=== PATIENT | female | born 1940 | race Caucasian/White ===

== ENCOUNTER 2018-11-25 16:25 | Inpatient (IN) ==
--- NOTE | 2018-11-25 18:33 | PROVIDER DOCUMENTATION ---
HPI-Cardiac General - General Chief Complaint: Weakness Stated Complaint: HR LOW Time Seen by Provider: 11/25/18 18:20 Source: patient Allergies/Adverse Reactions: Patient Allergies Allergy/AdvReac Type Severity Reaction Status Date / Time Penicillins AdvReac ANAPHYLAXIS Verified 11/25/18 20:10 Home Medications: Home Medication List Medication Instructions Recorded Confirmed Last Taken Type BENAZEpril/HCTZ [Lotensin Hct 1 tab PO DAILY 01/28/18 11/25/18 11/24/18 History 20/12.5] Fesoterodine Fumarate [Toviaz] 8 mg PO DAILY 01/28/18 11/25/18 11/24/18 History Levothyroxine Sodium 75 mcg PO DAILY@0600 01/28/18 11/25/18 11/24/18 History Rosuvastatin Calcium 10 mg PO DAILY 01/28/18 11/25/18 11/24/18 History Venlafaxine HCl [Venlafaxine HCl 75 mg PO BID 01/28/18 11/25/18 11/25/18 History ER] Cetirizine HCl [Zyrtec] 1 cap PO DAILY 11/25/18 11/25/18 11/24/18 History Cholecalciferol (Vitamin D3) 1 cap PO DAILY 11/25/18 11/25/18 11/24/18 History [Vitamin D3] Cyanocobalamin (Vitamin B-12) 1 dose INJ DIRECTED 11/25/18 11/25/18 Unknown History [Cyanocobalamin Injection] Lacosamide [Vimpat] 1 tab PO BID 11/25/18 11/25/18 11/25/18 History - History of Present Illness-Cardiac Nature of Presenting Problem: 78 YOF PRESENTS WITH BRADYCARDIA FROM PUBLIC RELATIONS COORDINATOR OFFICE, SHE REPORTS SHE HAS BEEN FEELING WEAK FOR A FEW DAYS BUT OTHERWISE HAS NO COMPLAINTS. SHE REPORTS HER L FOOT HAS BEEN TURNING BLACK EACH MORNING AND HER FEET HAVE BEEN SWELLING ON OCCASION Location: denies: substernal, central, epigastric, shoulder, back, abdomen, other Quality of Pain: reports: none. denies: aching, burning, cramping, dull, fullness, indigestion, pressure, sharp, stabbing, tearing, throbbing, tightness, other Onset/Duration: unsure Timing: still present Context/Activities at Onset: reports: none. denies: light activity, moderate activity, vigorous activity, recent emotional stress, recent physical stress, recent trauma history, possible bad food, cold exposure, eating, out of country travel, rest, sleep, sexual activity, other Modifying Factors: improves with: nothing. worse with: analgesics, antacids, breathing, cold/heat therapy, coughing, defecating, eating, exercise, immobilization, lying down, massage, movement, other medication, palpation, rest, urinating, vomiting, other Palpitation Quality: N/A History of arrythmia: reports: none Recent use of:: reports: no stimulants Nitro Today/Relief: reports: no nitro taken today Aspirin Treatment Today: reports: no aspirin today Prior Chest Pain/Cardiac Workup: reports: no prior chest pain, no prior cardiac workup Associated Symptoms: reports: denies symptoms Similar Symptoms Previously?: No Recently Seen Here or By Another Healthcare Provider: No Review of Systems - Adult - REVIEW OF SYSTEMS - ADULT Constitutional: reports: no symptoms reported. denies: see HPI, chills, fever, fatique, night sweats, weight gain, weight loss, other Eyes: reports: no symptoms reported. denies: see HPI, discharge, dry eyes, decreased vision, blurred vision, double vision, eye pain, redness, other Ears, Nose, Mouth & Throat: reports: no symptoms reported. denies: see HPI, ear discharge, ear pain, hearing loss, tinnitus, epistaxis, sinus problem, nose pain, loose teeth, mouth/dental pain, mouth swelling, hoarseness, throat pain, throat swelling, other Cardiovascular: reports: no symptoms reported, edema, other (BRADYCARDIA) Respiratory: reports: no symptoms reported. denies: see HPI, chronic cough, cough, dyspnea on exertion, excessive sputum production, hemoptysis, pleurisy, shortness of breath, wheezing, other Gastrointestinal: reports: no symptoms reported. denies: see HPI, abdominal pain, hematemesis, constipation, diarrhea, difficulty swallowing, frequent heartburn, nausea, poor appetite, rectal bleeding, vomiting, other Genitourinary: reports: no symptoms reported. denies: see HPI, dysuria, discharge, frequency, flank pain, frequent UTI's, hematuria, hesitency, incontinence, urinary retention, urgency, other Musculoskeletal: reports: no symptoms reported. denies: see HPI, bone pain, back pain, frequent leg cramps, joint pain, joint swelling, muscle aches, muscle weakness, neck pain, other Integumentary: reports: no symptoms reported. denies: see HPI, hives, hair loss, itching, mole changes, nail changes, rash, skin sores/ulcer, skin thickening, other Neurological: reports: no symptoms reported. denies: see HPI, ataxia, dizziness/vertigo, headache/migraines, loss of balance, numbness, paresthesia, seizure, slurred speech, syncope, tremors, other Psychiatric: reports: no symptoms reported. denies: see HPI, anxiety, anti- depressant use, alcohol/drug dependence, depression, emotional problems, insomnia, panic attacks, suicidal thoughts, other Endocrine: reports: no symptoms reported. denies: see HPI, change in skin pigment, excessive sweating, goiter, cold intolerance, heat intolerance, increased hunger, increased thirst, polyuria, other Hematologic/Lymphatic: reports: no symptoms reported. denies: see HPI, blood clots, easy bruising, low blood count, lymphedema, prolonged bleeding, swollen lymph nodes, transfusions, other Allergic/Immunologic: reports: no symptoms reported. denies: see HPI, allergic reactions, allergic rhinitis, asthma, eczema, food allergy, frequent infections, hay fever, hives, positive PPD, urticaria, other Past History - Adult - PAST MEDICAL HISTORY-ADULT Review of Records: reports: Nursing Assessment Review, Social history reviewed & non-contributory. Physical Exam-General - PHYSICAL EXAM-ADULT Initial Vital Signs Reviewed: No - CONSTITUTIONAL General Appearance: appears well, alert, no apparent distress - EYES Eyes: PERRL/EOMI, pink conjunctivae - HEAD, EARS, NOSE, MOUTH & THROAT HENMT: normocephalic/atraumatic, moist mucous membranes, normal ENT inspection - NECK Neck: non-tender, full range of motion - RESPIRATORY Respiratory: chest non-tender, lungs clear, normal breath sounds - CARDIOVASCULAR Cardiovascular: normal peripheral pulses, regular rate, rhythm, bradycardia. negative: no edema - GASTROINTESTINAL (ABDOMEN) Abdominal Exam: normal bowel sounds, non tender - LYMPHATIC Lymphatic: no adenopathy - MUSCULOSKELETAL Back Exam: normal inspection Extremity: normal range of motion, non-tender Peripheral Pulses: radial (R): 2+, radial (L): 2+ - SKIN Integumentary: normal color, normal turgor, warm/dry - NEUROLOGIC Neurologic: grossly normal - PSYCHIATRIC Psych/Mental Status: normal mood/affect, oriented x 3 Progress - PLAN OF CARE/RESULTS Progress/Plan/Lab Results: Vital Signs - 8 hr 11/25/18 16:29 11/25/18 18:03 Temperature 97.5 F L Pulse Rate 41 L Respiratory Rate 15 Blood Pressure 183/48 O2 Sat by Pulse Oximetry 98 100 Laboratory Results - last 24 hr 11/25/18 11/25/18 11/25/18 18:53 18:53 18:53 WBC 6.76 RBC 4.38 Hgb 13.1 Hct 38.6 MCV 88.1 MCH 29.9 MCHC 33.9 RDW Std Deviation 13.3 Plt Count 129 L MPV 9.8 Immature Gran % (Auto) 0.3 Neut % (Auto) 68.2 Lymph % (Auto) 20.6 [place] % (Auto) 8.3 Eos % (Auto) 2.5 Baso % (Auto) 0.1 Immature Gran # (Auto) 0.02 Neut # (Auto) 4.61 Lymph # (Auto) 1.39 [place] # (Auto) 0.56 Eos # (Auto) 0.17 Baso # (Auto) 0.01 PT 13.4 INR 0.95 PTT (Actin FS) 32.7 Sodium 148 H Potassium 3.1 L Chloride 109 H Carbon Dioxide 26 Anion Gap 13 BUN 13 Creatinine 0.7 Estimated GFR/1.73 m2 > 60 BUN/Creatinine Ratio 19 Glucose 101 POC Glucose Calculated Osmolality 295 Calcium 9.0 Troponin T Rjh-O-Ljkupgdnjiz Pept 11/25/18 11/25/18 11/25/18 18:53 18:53 19:57 WBC RBC Hgb Hct MCV MCH MCHC RDW Std Deviation Plt Count MPV Immature Gran % (Auto) Neut % (Auto) Lymph % (Auto) [place] % (Auto) Eos % (Auto) Baso % (Auto) Immature Gran # (Auto) Neut # (Auto) Lymph # (Auto) [place] # (Auto) Eos # (Auto) Baso # (Auto) PT INR PTT (Actin FS) Sodium Potassium Chloride Carbon Dioxide Anion Gap BUN Creatinine Estimated GFR/1.73 m2 BUN/Creatinine Ratio Glucose POC Glucose 96 Calculated Osmolality Calcium Troponin T < 0.010 Otd-P-Accuuwenhxe Pept 1054 H Orders Category Date Time Status Nursing- Obtain EKG ONCE Care 11/25/18 18:24 Active Saline Loc NOW Care 11/25/18 18:23 Active CHEST-1 VIEW [RAD] Stat Exams 11/25/18 18:23 Completed BASIC METABOLIC PANEL [CHEM] Stat Lab 11/25/18 18:53 Completed CBC WITH ELECTRONIC DIFF [HEME] Stat Lab 11/25/18 18:53 Completed PROTIME WITH INR [COAG] Stat Lab 11/25/18 18:53 Completed PTT [COAG] Stat Lab 11/25/18 18:53 Completed TROPONIN T Stat Lab 11/25/18 18:53 Completed bnp [PRO B-NATRIURETIC PEPTIDE] Stat Lab 11/25/18 18:53 Completed Potassium Chloride Powder Pkt [Klor-Con Powder Packet] Med 11/25/18 19:46 Di scontinued 40 meq PO NOW ONE EKG [EKG] Stat Ther 11/25/18 18:23 Ordered Result Diagrams: 11/25/18 18:53 11/25/18 18:53 - REASSESSMENT Reassessment #1 Time Reassessed: 19:47 (DR. BRIONES PAGED FOR ADMIT) Reassessment Comment: 2025: OK TO ADMIT PER DR BRIONES - EKG 1 Time of EKG reading by physician:: 16:39 EKG Read and Signed by:: Pierre Poe Rate: 38 Rhythm: MARKED SINUS BRADYCARDIA Departure - Departure Date of Disposition Decision: 11/25/18 Time of Disposition Decision: 20:27 DIAGNOSIS: Bradyarrhythmia, Hypokalemia Disposition: ADMITTED INPATIENT 09 Certified Medical Emergency: Emergent Condition: Stable Referrals and Follow-Ups: None,PCP [Primary Care Provider] - - Critical Care Note This patient required my direct & personal management of CC.: No Attestation - Physician/ ROSLYN Attestation Patient care was provided by Advanced Practice Provider:: Yes Advanced Practice Provider:: Vero Yeung Advanced Practice Provider documentation review:: The Mid-level provider documentation, treatment plan and medical decision making was reviewed by the physician who agrees with all treatment and medical decision making by the MLP. The physician spent face to face time with patient:: No Advanced Practice Provider documentation review:: Supervising physician onsite and consulted in the evaluation and care of this patient. The physician did not have a face to face encounter with the patient.
[2018-11-25 19:07] LABS: BASO# 0.01 X1000 (0.0-0.2); BASO% 0.1 % (0.0-0.8); EOS# 0.17 X1000 (0.0-0.7); EOS% 2.5 % (0.0-10.0); HEMATOCRIT 38.6 % (37.0-47.0); HEMOGLOBIN 13.1 g/dL (12.0-16.0); IMM GRAN# 0.02 X1000 (0.0-0.04); IMM GRAN% 0.3 % (0.0-0.5); LYMPH# 1.39 X1000 (1.2-3.4); LYMPH% 20.6 % (20.5-51.1); MCH 29.9 PG (27-31); MCHC 33.9 g/dL (33-37); MCV 88.1 FL (81-99); MONO# 0.56 X1000 (0.11-0.59); MONO% 8.3 % (1.7-9.3); MPV 9.8 FL (7.4-10.4); NEUT# 4.61 X1000 (1.4-6.5); NEUT% 68.2 % (42.2-75.2); PLT 129 X1000 (130-400); RBC 4.38 XMIL (4.2-5.4); RDW 13.3 % (11.5-14.5); WBC 6.76 X1000 (4.8-10.8)
--- NOTE | 2018-11-25 19:14 | Diag Imaging Result Doc PS360 ---
CHEST-1 VIEW - 11/25/2018 INDICATION: bradycardia COMPARISON: None FINDINGS: There is mild right hemidiaphragm elevation. The lungs are clear. Heart size is normal. No pneumothorax or pleural effusion. IMPRESSION: No acute disease. Electronically signed by Jeromy Colin 11/25/2018 7:12 PM
[2018-11-25 19:15] LABS: INR 0.95; PROTIME 13.4 Seconds (11.0-16.0)
[2018-11-25 19:16] LABS: PTT 32.7 Seconds (22.3-41.8)
[2018-11-25 19:40] LABS: AGAP 13; BUN 13 mg/dL (8-22); CHLORIDE 109 mmol/L (98-107); COSMO 295; CREATININE 0.7 mg/dL (0.5-0.9); ESTIMATED GFR > 60; GLUCOSE 101 mg/dL (70-104); POTASSIUM 3.1 mmol/L (3.5-5.1); SODIUM 148 mmol/L (136-145); TCO2 26 mmol/L (25-35)
[2018-11-25] MEDS ORDERED: KLOR-CON POWDER PACKET PO ONE (19:46)
--- NOTE | 2018-11-25 22:42 | HISTORY AND PHYSICAL ---
PRIMARY CARE PHYSICIAN: Dr. Tucker CHIEF COMPLAINT: "Woozy, did not feel well." INCOMPLETE REPORT. DICTATION ENDS HERE. cc: Maicol Tomas MD
--- NOTE | 2018-11-25 22:49 | HISTORY AND PHYSICAL ---
PRIMARY CARE PHYSICIAN: Dr. Tucker. CHIEF COMPLAINT: Woozy, not feeling well. HISTORY OF PRESENTING ILLNESS: This is a 78-year-old female with a history of MS, mitral valve prolapse, hypothyroidism, hypertension and hyperlipidemia who had presented to emergency department with several days history of having dizziness and feeling woozy. Apparently home health nurse has seen the patient and had taken blood pressure and pulse, and it was noted that she was bradycardic. Subsequently she was referred to the emergency department. In the ED, she continued to be bradycardic with a heart rate around 40s; however she was not symptomatic; however, due to her presenting symptoms, she will require admission for further management. At the time of my examination, patient denied any headache, fever, chills, chest pain, shortness of breath, hemoptysis, melena, weight changes but complained of being woozy. PAST MEDICAL HISTORY: Includes MS, mitral valve prolapse, hypothyroidism, hypertension, overactive bladder, hyperlipidemia. PAST SURGICAL HISTORY: Hysterectomy, cholecystectomy, brain surgery. ALLERGIES: Penicillin. CURRENT MEDICATIONS: As listed in the medication reconciliation sheet. SOCIAL HISTORY: She is a former smoker. Denies any history of alcohol or illicit drug use. FAMILY HISTORY: Positive for coronary disease in father. REVIEW OF SYSTEMS: Fourteen-point review of systems is as in HPI. Other systems negative. PHYSICAL EXAMINATION: GENERAL: Cooperative, friendly female. She is resting comfortably. VITAL SIGNS: Temperature 97.5 degrees, pulse 41, respirations 15, blood pressure 183/48. HEENT: Atraumatic, normocephalic. Extraocular movements intact. PERRLA. NECK: Supple. CHEST: Clear to auscultation. CARDIOVASCULAR: Regular rate and rhythm. ABDOMEN: Soft. Positive bowel sounds. EXTREMITIES: No edema. NEUROLOGIC: She is awake, alert, oriented x3. GENITOURINARY: No bladder distention. SKIN: Warm. LABORATORIES AND STUDIES: WBC 6.76, hemoglobin 13.1, hematocrit 38.6. Platelets 129,000. Sodium 148, potassium 3.1, chloride 109, CO2 26, BUN is 13. Creatinine is 0.7. Glucose is 101. Chest x- ray is negative. ASSESSMENT: A 78-year-old female with a history of multiple sclerosis, mitral valve prolapse, hypothyroidism and hypertension who presented to emergency department with several days history of having some woozy spells. She apparently had seen her home health nurse who found that she was bradycardic, and she was sent to the emergency department. She was evaluated in the ED. Her heart rate was around 40s. Subsequently she will require admission for further management. 1. Weakness. 2. Bradycardia. 3. Multiple sclerosis. 4. Hypertension. PLAN: 1. We will admit patient to medical floor with telemetry. 2. We will continue to monitor patient on telemetry. 3. Check echocardiogram and consult Cardiology. 4. We will restart patient's home medications. 5. Monitor blood pressure closely. 6. Put patient on DVT prophylaxis with SCD. 7. We will continue to follow and reassess, make further recommendation based on patient's clinical course. cc: Maicol Tomas MD
[2018-11-25] MEDS ORDERED: CYANOCOBALAMIN INJ SCH (23:30)
[2018-11-26] MEDS: NS 1,000 ML IV SCH ×2 (00:10→13:06)
[2018-11-26 03:54] LABS: URINE SOURCE CLEAN CATCH
[2018-11-26 04:00] LABS: BILIRUBIN URINE NEGATIVE (NEGATIVE); BLOOD URINE NEGATIVE (NEGATIVE); COLOR YELLOW; GLUCOSE URINE NEGATIVE (NEGATIVE); KETONE URINE NEGATIVE (NEGATIVE); LEUKOCYTES URINE NEGATIVE (NEGATIVE); NITRITE URINE NEGATIVE (NEGATIVE); PH URINE 6.5; PROTEIN URINE NEGATIVE (NEGATIVE); TURBIDITY URINE CLEAR (CLEAR); UROBILINOGEN URINE NORMAL (NORMAL)
[2018-11-26 04:04] LABS: UR EPITHELIAL CELLS <10 /HPF (<10); URINE BACTERIA NEGATIVE /HPF; URINE RBC <10 /HPF (<10); URINE WBC <10 /HPF (<10)
[2018-11-26 04:18] LABS: URINE CASTS NONE SEEN; URINE CRYSTALS NONE SEEN; URINE SMALL ROUND CELLS NONE SEEN; URINE YEAST NONE SEEN
[2018-11-26] MEDS ORDERED: SYNTHROID PO SCH (06:00)
[2018-11-26 06:12] LABS: AGAP 9; BUN 10 mg/dL (8-22); CALCIUM 8.3 mg/dL (8.8-10.2); CHLORIDE 112 mmol/L (98-107); COSMO 291; CREATININE 0.6 mg/dL (0.5-0.9); ESTIMATED GFR > 60; GLUCOSE 91 mg/dL (70-104); POTASSIUM 3.1 mmol/L (3.5-5.1); SODIUM 147 mmol/L (136-145); TCO2 26 mmol/L (25-35)
[2018-11-26 06:18] LABS: BASO# 0.01 X1000 (0.0-0.2); BASO% 0.2 % (0.0-0.8); EOS# 0.17 X1000 (0.0-0.7); EOS% 3.9 % (0.0-10.0); HEMATOCRIT 35.8 % (37.0-47.0); HEMOGLOBIN 11.7 g/dL (12.0-16.0); IMM GRAN# 0.02 X1000 (0.0-0.04); IMM GRAN% 0.5 % (0.0-0.5); LYMPH# 1.18 X1000 (1.2-3.4); MCH 28.8 PG (27-31); MCHC 32.7 g/dL (33-37); MCV 88.2 FL (81-99); MONO# 0.45 X1000 (0.11-0.59); MONO% 10.3 % (1.7-9.3); MPV 10.2 FL (7.4-10.4); NEUT# 2.54 X1000 (1.4-6.5); NEUT% 58.1 % (42.2-75.2); PLT 126 X1000 (130-400); RBC 4.06 XMIL (4.2-5.4); RDW 13.2 % (11.5-14.5); WBC 4.37 X1000 (4.8-10.8)
--- NOTE | 2018-11-26 07:31 | EKG Report ---
Test Performed on : 11/25/2018 4:39:37 PM Test Reason : bradycardia Blood Pressure : / mmHG Vent. Rate : 038 BPM Atrial Rate : 038 BPM P-R Int : 190 ms QRS Dur : 124 ms QT Int : 528 ms P-R-T Axes : 060 051 114 degrees QTc Int : 419 ms Marked sinus bradycardia. Right bundle branch block Abnormal ECG No previous ECGs available Unconfirmed Result
[2018-11-26] MEDS: EFFEXOR XR PO SCH ×2 (08:39→21:32)
[2018-11-26] MEDS: VIMPAT PO SCH ×2 (08:45→21:32)
[2018-11-26] MEDS ORDERED: ZYRTEC PO SCH (09:00)
[2018-11-26] MEDS ORDERED: LOTENSIN HCT PO SCH (09:00)
[2018-11-26] MEDS ORDERED: CRESTOR PO SCH (09:00)
[2018-11-26] MEDS ORDERED: VITAMIN D PO SCH (09:00)
--- NOTE | 2018-11-26 10:03 | EKG Report ---
Test Performed on : 11/26/2018 08:25:34 AM Test Reason : bradycardia Blood Pressure : / mmHG Vent. Rate : 038 BPM Atrial Rate : 038 BPM P-R Int : 198 ms QRS Dur : 126 ms QT Int : 730 ms P-R-T Axes : 071 072 111 degrees QTc Int : 580 ms Marked sinus bradycardia. Right bundle branch block Abnormal ECG When compared with ECG of 25-NOV-2018 16:39, (Unconfirmed) Nonspecific T wave abnormality no longer evident in Anterior leads QT has lengthened Confirmed by Vinh HALL, Dale ([id number]) on 11/27/2018 8:37:43 AM
[2018-11-26] MEDS ORDERED: KLOR-CON PO ONE (11:44)
--- NOTE | 2018-11-26 13:29 | CARDIOLOGY CONSULTATION ---
DATE: 11/26/2018 INDICATION: Bradycardia. HISTORY OF PRESENT ILLNESS: Ms Ying is a 78-year-old female who has a history of apparently multiple sclerosis who follows with Dr. Salcedo in [place]. In addition, she has a history of hypertension, dyslipidemia, previously seeing Dr. Valencia a number of years ago. She presented for evaluation of generally not feeling well. Home health came out the day of presentation and told her she had a heart rate that was too low and she needed to come in. The patient reports generalized fatigue for several weeks to months which she attributed to dealing with the recent of her sister. She has had some mild dizziness but no syncope over the last several days. No recent fevers. No recent medication changes that she is aware. PAST MEDICAL HISTORY: 1. Significant for MS. 2. Hypertension. 3. Hyperlipidemia. 4. Previous history of mitral valve prolapse that she was told about; however, echo from 2016 demonstrated a normal mitral valve. 5. Hypothyroidism. 6. Hypertension. 7. Overactive bladder. SOCIAL HISTORY: Former smoker. She lives in an apparent assisted living facility. REVIEW OF SYSTEMS: A 10 system review of systems is negative except for those mentioned in HPI. FAMILY HISTORY: Hypertension in her father. PHYSICAL EXAMINATION: Vital signs: She is afebrile, heart rates are primarily in the 30s to 40s. Telemetry seems to show a 2:1 AV block. Her blood pressure most recently is 169/40. General: She is in no acute distress. HEENT: Oropharynx is moist. She has poor dentition. Her eye examination is pink conjunctivae. White sclerae. Neck: No obvious thyromegaly or thyroid tenderness. Cardiovascular: She sounds to be in a bradycardic rate but a regular rhythm. She has no obvious murmurs. She has no lower extremity edema. No carotid bruits. Chest: Sounds clear bilaterally. She has no increased work of breathing. Abdomen: Soft, nontender, nondistended. She has no obvious organomegaly. Skin: Warm and dry throughout without any rashes. PERTINENT DATA: Her EKG demonstrates atrial rhythm of sinus. She has a ventricular rate of 38 beats per minute. She appears to be in a 2:1 AV block. She has a right bundle branch block present. That was on an EKG at 0825 this morning. Previous EKG at 1639 yesterday was consistent with this. She had a chest x-ray performed demonstrating no evidence of active disease. Her white count is 4.4, hematocrit 35, platelet count is 126,000. Her INR is 0.95. Sodium 147, potassium 3.1, her BUN is 10, creatinine 0.6. Her proBNP was 1054. We do not have a TSH back on her. Urinalysis was unremarkable. ASSESSMENT: Ms. Ying is a 78-year-old female who presented in 2:1 atrioventricular block with symptoms of generalized fatigue and mild dizziness. PLAN: We are waiting her TSH. Her echocardiogram is currently pending. If these results are in agreement, we will likely send her over to [facility] for a pacemaker implantation. She is on Vimpat which can cause some issues with AV block but given the issues that she has in the form of MS, it seems like that would be an important medicine for her to remain on. We will follow up on the results and transfer her if deemed appropriate. cc: Kelvin Olson MD
--- NOTE | 2018-11-26 13:37 | ECHO REPORT ---
ORDER DATE: 11/25/2018 INTERPRETING PHYSICIAN: Dr. Juan Jo ECHOCARDIOGRAPHIC MEASUREMENTS: 1. Interventricular septum: 0.9 cm. 2. Left ventricular posterior wall: 3.9 cm. 3. Diastolic diameter: 5.0 cm. 4. Left atrium: 3 cm. SUMMARY OF THE 2-DIMENSIONAL IMAGIN. Aortic valve leaflets are trileaflet. 2. Mitral valve was normal. 3. Tricuspid valve was normal. 4. Pulmonic valve was normal. 5. There is mild tricuspid regurgitation. Peak velocity across the tricuspid valve was 3.2 m/sec. Pulmonary artery systolic pressure of 49 mmHg. 6. There is mild mitral regurgitation. There is diastolic dysfunction. 7. Normal left ventricular cavity size. Estimated ejection fraction of 65 to 70 percent. Bradycardia Hr 35 -40 beats per min noted 8. Peak velocity across the aortic valve less than 2 m/sec. There is no aortic stenosis or regurgitation. 9. There is no pericardial effusion or obvious intracardiac mass or thrombus seen. cc: MD Maicol Sotomayor MD MTDD
--- NOTE | 2018-11-26 16:16 | PROGRESS NOTE ---
DATE: 11/26/2018 SUBJECTIVE: Patient is resting comfortably in bed. She has a daughter present in the room. OBJECTIVE: Vital signs: Temperature 98.4, pulse 137, respiratory 16, blood pressure 169/40, and oxygen saturation is 100%. HEENT: She is atraumatic, normocephalic. Cardiovascular: S1, S2. Respiratory: There is evidence of good air entry bilaterally. Abdomen: Soft, nontender. No masses felt. Extremities: No evidence of edema. Central nervous system: No obvious focal deficits noted. LABORATORY: WBC is 4.37, hematocrit 35.8 with a platelet count of 126,000. Sodium is 147. Potassium is 3.1, chloride is 112, bicarb is 26, BUN is 10 and creatinine 0.6. TSH is 5.69 which is elevated. Normal ranges is 0.27 to 4.2, and then free T4 level is 0.91 which is suppressed. Normal range is 0.93 to 1.7. ASSESSMENT AND PLAN: 1. Under treated hypothyroidism. This will possibly explain the patient's presentation of weakness, and also bradycardia. The patient had been on 75 mcg of levothyroxine. I have increased it to 88 mcg once a day. The patient will need to be educated on being compliant with her thyroid medication. Follow up on repeat thyroid function test in the near future. 2. Bradycardia. This may be related to under treated hypothyroidism. The patient being followed by the Cardiology team. 3. Pancytopenia. We will check a B12 as well as folate level, and also hepatitis panel. Consult with hematology. 4. Hypokalemia. Replace potassium level. Check magnesium level. 5. Hypertension. Continue the patient's antihypertensive medications. cc: Cameron Rai MD
[2018-11-27 04:28] VITALS: BP 188/57
[2018-11-27 05:35] LABS: BASO# 0.01 X1000 (0.0-0.2); BASO% 0.2 % (0.0-0.8); EOS# 0.15 X1000 (0.0-0.7); EOS% 3.6 % (0.0-10.0); HEMOGLOBIN 11.3 g/dL (12.0-16.0); LYMPH# 1.11 X1000 (1.2-3.4); LYMPH% 26.7 % (20.5-51.1); MCH 28.8 PG (27-31); MCHC 32.3 g/dL (33-37); MCV 89.3 FL (81-99); MONO# 0.39 X1000 (0.11-0.59); MONO% 9.4 % (1.7-9.3); MPV 9.9 FL (7.4-10.4); NEUT# 2.49 X1000 (1.4-6.5); NEUT% 60.1 % (42.2-75.2); PLT 108 X1000 (130-400); RBC 3.92 XMIL (4.2-5.4); RDW 13.3 % (11.5-14.5); WBC 4.15 X1000 (4.8-10.8)
[2018-11-27 05:43] LABS: INR 1.03; PROTIME 14.3 Seconds (11.0-16.0)
[2018-11-27 05:53] LABS: AGAP 9; BUN 15 mg/dL (8-22); CHLORIDE 113 mmol/L (98-107); COSMO 291; CREATININE 0.8 mg/dL (0.5-0.9); ESTIMATED GFR > 60; GLUCOSE 95 mg/dL (70-104); MAGNESIUM 1.7 mg/dL (1.5-2.7); POTASSIUM 3.5 mmol/L (3.5-5.1); SODIUM 146 mmol/L (136-145); TCO2 24 mmol/L (25-35)
[2018-11-27] MEDS ORDERED: SYNTHROID PO SCH (07:00)
[2018-11-27] MEDS ORDERED: PRILOSEC PO SCH (07:00)
--- NOTE | 2018-11-27 08:11 | EKG Report ---
Test Performed on : 11/27/2018 07:12:40 AM Test Reason : 2:1 AV block Blood Pressure : / mmHG Vent. Rate : 040 BPM Atrial Rate : 040 BPM P-R Int : 200 ms QRS Dur : 124 ms QT Int : 558 ms P-R-T Axes : 046 056 119 degrees QTc Int : 454 ms Marked sinus bradycardia. Right bundle branch block T wave abnormality, consider lateral ischemia Abnormal ECG When compared with ECG of 26-NOV-2018 08:25, (Unconfirmed) QT has shortened Confirmed by Vinh HALL, Dale ([id number]) on 11/27/2018 8:44:04 AM
[2018-11-28 12:03] LABS: HEPATITIS PROFILE ACUTE SEE COMMENTS
--- NOTE | 2018-11-30 12:57 | DISCHARGE SUMMARY ---
ADMISSION DATE: 11/25/2018 DISCHARGE DATE: 11/27/2018 PRINCIPAL DIAGNOSIS: Undertreated hypothyroidism. SECONDARY DIAGNOSES: 1. Bradycardia, probably secondary to undertreated hypothyroidism. 2. Pancytopenia. 3. Hypokalemia. 4. Hypertension. 5. History of multiple sclerosis. 6. History of mitral valve prolapse. 7. Overactive bladder. 8. Hyperlipidemia. 9. Anemia. 10. Hypocalcemia. DISCHARGE MEDICATIONS: Include the following: Levothyroxine 88 mcg p.o. once a day, Toviaz 8 mg p.o. daily, rosuvastatin 10 mg p.o. daily, venlafaxine 75 mg p.o. twice a day, Lotensin/hydrochlorothiazide 20/12.5 one daily, Vimpat 200 mg p.o. twice a day, cetirizine 10 mg p.o. daily. CONSULTATIONS DONE DURING THIS HOSPITAL STAY: Dr. Kelvin Olson, cardiology. SPECIAL PROCEDURES DONE DURING THIS HOSPITAL: A 2D echocardiogram of the heart on 11/25/2018. HOSPITAL COURSE: Ms. Lupis Ying is a 78-year-old female who was admitted to the hospital because of weakness and was found to be bradycardic. Thyroid profile showed evidence of undertreated hypothyroidism, probably explaining weakness as well as bradycardia. Synthroid dose was optimized from 75 mcg once a day to 88 mcg once a day. The patient was seen by the cardiology team who thought the patient may benefit from pacemaker implantation. The patient was subsequently transferred to [facility] on 11/27/2018 for further management of her bradycardia. cc: Cameron Rai MD MTDD
== END 2018-11-27 07:45 | disposition short-term general hospital (02) | DRG 644 ==
LOC: 3S 16:25 → ED 16:25 → SUATTDRO 22:50 → OBSVTOIN 22:50
PROVIDERS: ATTEND Internal Medicine
CPT/HCPCS: 71010; 71045; 80048; 80074; 81001; 82607; 82746; 82948; 83735; 83880; 84439; 84443; 84481; 84484; 85025; 85610; 85730; 93005; 93010; 93306; 99285; A9270; J7030; XXXXX